=== PATIENT | female | born 1975 | race Hispanic/Latino ===

== ENCOUNTER 2020-12-02 06:49 | Observation (INO) | payer OTHER ==
[~2020-12-02] VITALS: Ht 162.6 cm; Wt 65.0 kg
[2020-12-02] MEDS ORDERED: LISINOPRIL20 MG PO (07:17)
[2020-12-02] MEDS ORDERED: LEVOTHYROXINE50 MC1 PO (10:50)
--- NOTE | 2020-12-02 11:40 | NUR ---
PATIENT TAKEN TO SURGERY AT THIS TIME.
--- NOTE | 2020-12-02 12:55 | NUR ---
ASSESSING pt was checked in after being brought back to the floor, by charge nurse Chitra LEIJA. this RN to bedside to check in on pt. pt wakes to voice and touch, very groggy at this time. pt able to have sips of water and ice chips at this time, no nausea. pt denies needs at this time. table and call light in reach, family at bedside.
--- NOTE | 2020-12-02 13:25 | NUR ---
POST-OP VITALS pts VSS. pt wakes to voice and touch. pt still groggy post-op. pt able to take sips of water at this time, denies nausea. pt sitting up, semi-fowlers in bed, breathing even and unlabored, table and call light in reach.
--- NOTE | 2020-12-02 13:54 | NUR ---
12/02/20 1354 CHRISTIANNE LEHMAN 1336 PATIENT INTO PACU. AIRWAY IN PLACE. PATIENT WILL OPEN EYES TO VERBAL STIMULI. APPEARS DROWSY. DRESSING C/D/I. VSS. DOES NOT APPEAR PAIN OR NAUSEA 1346 SARAH TATE PULLED ORAL AIRWAY. BP STABLE. PATIENT NEEDING ENCOURAGEMENT TO BREATH ABD TAKE DEEP BREATHS. 1353 PATIENT APPEARS MORE AWAKE MASK ON 10 L, PATIENT NEEDS ENCOURAGEMENT TO TAKE DEEP BREATHS.
--- NOTE | 2020-12-02 14:45 | NUR ---
PT ARRIVED AT 1425. PT SINCE ARRIVAL HAS BEEN VERY DROWSY AND IS NOT REALLY TALKING JUST YET. V/S WDL EXCEPT BEING ON 2L O2 NC. LAP SITES X4 WITH A SCANT AMOUNT OF SEROUS DRAINGE PRESEN, STERI STRIPS IN PLACE. WILL WAIT FOR PT TO WAKE UP SOME MORE FOR A MORE THROUGH ASSESSMENT.
--- NOTE | 2020-12-02 16:10 | NUR ---
CCU CALLED ABOUT T-WAVE INVERSION A COUPLE OF MINUTES AGO. CALLED ONI AND RECEIVED ORDERS FOR A EKG AND A TROPONIN. ALL IS DONE. RESULTS TO FOLLOW.
--- NOTE | 2020-12-02 17:15 | NUR ---
JOSE CARLOS FROM LAB JUST CALLED WITH A CRITICAL TROPONIN OF 0.445. MD BUNN AWARE.
--- NOTE | 2020-12-02 17:49 | EKG ---
[facility] [address] [facility] [place], [place] [address] Signed Normal sinus rhythm Left axis deviation ST \T\ T wave abnormality, consider inferolateral ischemia Prolonged QT Abnormal ECG No previous ECGs available Confirmed by GRACE RODRIGUEZ DO ([id number]) on 12/02/2020 5:49:24 PM Electronically Signed By: GRACE RODRIGUEZ DO 12/02/20 1749 PATIENT NAME: ZECHARIAH DE JESUS Electrocardiogram DATE OF : 71 PHYSICIAN: GRACE RODRIGUEZ DO REPORT #: [id number] REPORT IS CONFIDENTIAL AND NOT TO BE RELEASED WITHOUT AUTHORIZATION
--- NOTE | 2020-12-02 20:30 | NUR ---
PATIENT DENIES PAIN AT THIS TIME PER PATIENT'S DAUGHTER TRANSLATING. INSTRUCTED DAUGHTER TO HAVE THE PATIENT TELL HER IF PATIENT STARTS HAVING ANY PAIN SO WE CAN MEDICATE. PATIENT'S DAUGHTER AND LEAVING FOR A FEW MINUTES. PATIENT'S CALL LIGHT IS IN REACH.
--- NOTE | 2020-12-02 22:14 | NUR ---
PT IS ON [address] BUNN'S ORDERS. PT DENIES NEEDS AT THIS TIME. CALL LIGHT IS CLOSE.
--- NOTE | 2020-12-02 22:50 | NUR ---
ENTERED PT'S ROOM TO ASSIST HER TO USE BSC. UPON REMOVING THE BLANKETS TO GET PT UP HER GOWN WAS SATURATED WITH BLOOD OVER THE MIDDLE OF HER ABDOMEN. GATHERED SUPPLIES TO PLACE OVER BLEEDING AND SAW PRIMARY RN COLLIN. HE ENTERED THE ROOM AND PUT GAUZE AND TAPE OVER THE MID UPPER ABD LAP SITE. VS TAKEN AND WNL. PT DENIES CHEST PAIN, SOB.
--- NOTE | 2020-12-02 23:00 | NUR ---
CALLED FOR BLEEDING AT UPPER MIDLINE EPIGASTRIC LAB SITE. DR. BNUN VERBLIZED TO HOLD PRESSURE ON THE SITE FOR 10-15 MINUTES AND IF BLEEDING DOES NOT RESOLVE TO GIVE HIM A CALL BACK ON HIS HOME PHONE. THIS RN VERBALIZED UNDERSTANDING.
--- NOTE | 2020-12-02 23:15 | NUR ---
HELD PRESSURE TO PT'S ABD WHILE COLLIN LEIJA CALLED DR BUNN. THEN CONTINUED TO HOLD PRESSURE FOR 15MIN TOTAL. BLOOD ON GAUZE HAS NOT INCREASED AT THIS TIME. ABD PAD PLACED OVER GAUZE AND TAPED. PT DENIES CHEST PAIN AND SOB. PT REPORTS SOME PAIN WHERE PRESSURE WAS HELD. PT DENIES NEEDS AT THIS TIME. CALL LIGHT IS CLOSE.
--- NOTE | 2020-12-02 23:55 | NUR ---
PATIENT IS RESTING QUIETLY AND AWAKENS TO VOICE. DENIES PAIN AT THIS TIME. DRESSING TO ABD CHECKED AND AREA'S OF BLOOD OUTLINED WITH MARKER, DRESSING NOT REMOVED. PATIENT'S VS ARE STABLE AND PATIENT DOES REMAIN ON 2L/NC PER .
--- NOTE | 2020-12-03 02:20 | NUR ---
IN TO ASSIST NEEDED WITH LINEN CHANGE, WASHCLOTH USED TO CLEAN PT SIDE, LAB IN TO DRAW, NO FURTHER NEEDS FROM THIS SAP DIRECTOR AT THIS TIME
--- NOTE | 2020-12-03 02:26 | NUR ---
PHONE CALL TO . PATIENT'S UPPER MIDLINE LAPROSCOPIC SITE HAS STARTED BLEEDING AGAIN, 4X4'S SATURATED AND BLOOD HAS POOLED ON HER LEFT SIDE BY HER HIP. CALLED AND ORDERS FOR CBC AND COAG LABS GIVEN. DIERECT PRESSURE TO LAB SITE APPLIED WITH 4X4'S. FAIZAN FROM CCU HAD ALREADY A POTASSIUM FOR LAB AND A NEW EKG WAS DONE.
--- NOTE | 2020-12-03 02:26 | NUR ---
PT QRS INTERVAL CONTINUES TO INCREASE. PT DENIES PAIN OR SHORTNESS OF BREATH, BUT APPEARS PALE AND DIAPHORETIC. MID EPIGASTRIC ABDOMINAL INCISION LEEKING BLOOD THROUGH DRESSING, GOWN AND BEDDING. PRIMARY NURSE, RT AND CHARGE NURSE AT BEDSIDE. TELEPHONE ORDERS FROM DR BUNN FOR POTASSIUM AND EKG. WILL CONTINUE COLLABORATE WITH PRIMARY CARE NURSE ON PATIENT STATUS.
--- NOTE | 2020-12-03 03:05 | NUR ---
CAME IN AND PUT SOME STITCHES IN THE UPPER MIDLINE LAP SITE. LAB UNABLE TO GET BLLOD DRAW WITH 3 ATTEMPTS. THIS RN COMPLETED LAB DRAW AND SENT IT DOWN. FOLDED GAUZE TO THE SIZE OF A 2X2 PLACED OVER STITCHED LAP SITE AND CLEAR SURGICAL TAPE APPLIED. PATIENT'S LINEN'S HAVE BEEN CHANGED AND AN ABD BINDER PLACED UNDER PATIENT BEFORE ARRIVED, BUT HE DOES NOT WANT THIS APPLIED AT THIS TIME. PATIENT'S DAUGHTER HAS BEEN TRANSLATING FOR AND STAFF. PATIENT STILL DENIES NEED FOR PAIN MEDICATION. CALL LIGHT IS IN REACH.
--- NOTE | 2020-12-03 03:08 | OR ---
[facility] [place] [facility] [address] [place], [place] [address] Signed DATE OF OPERATION: 12/02/2020 SURGEON: Sarah Bunn MD PREOPERATIVE DIAGNOSIS: Acute calculous cholecystitis. POSTOPERATIVE DIAGNOSIS: Acute calculous cholecystitis. PROCEDURES: 1. Laparoscopic cholecystectomy with intraoperative cholangiogram. 2. Surgeon-directed fluoroscopy. ANESTHESIA: General endotracheal; Sarah Gonzalez CRNA, and local 20 mL of 0.25% Marcaine with epinephrine. INDICATION: This 45-year-old woman, who is from the [facility] and presented to the emergency room, evaluated by Dr. Claudio and found to have acute cholecystitis as manifest by right subcostal tenderness and a gallbladder ultrasound showing thickening of the gallbladder wall and multiple stones. She was evaluated and found to have stones several months ago at the [facility], but inability to provide referral for surgical evaluation as noted by the family and that is why they presented to the hospital in [place]. She has been given fluid resuscitation, IV antibiotics, parental pain medication and is now to undergo cholecystectomy, preferably by laparoscopic approach. The risks of bleeding, infection, bile duct injury, and need for other indicated procedures were reviewed in detail. She understands and wished to proceed. FINDINGS: The gallbladder was markedly distended and inflamed, but not bile-stained. It had a pink edematous appearance. The liver was normal. Cholecystectomy was performed without problem showing multiple gallstones and severe acute inflammation. Cholangiogram was normal. There were no complications. DESCRIPTION OF PROCEDURE: The patient was brought to the operating room, given a general endotracheal anesthetic. During the course of intubation, her upper central false teeth, which were attached to two posts were dislodged apparently and were preserved and will be passed to the patient Electronically Signed By: SARAH BUNN MD 12/03/20 0308 PATIENT NAME: ZECHARIAH DE JESUS OPERATIVE REPORT DATE OF : 71 REPORT #: [id number] PHYSICIAN: SARAH BUNN MD PCP: OTHER PCP REPORT IS CONFIDENTIAL AND NOT TO BE RELEASED WITHOUT AUTHORIZATION [facility] [place] [facility] [address] [place], [place] [address] Signed postoperatively. There was no injury to the implants itself. It is uncertain if this represented a semi-permanent dental device or one that is removed on a daily basis. After satisfactory general endotracheal anesthesia, the abdomen was prepared with a chlorhexidine solution and draped sterilely. An infraumbilical incision was made and using an open Zehra cannula technique pneumoperitoneum achieved to a level of 14 mmHg of carbon dioxide gas. Intraabdominal inspection showed no ascites or carcinomatosis. The gallbladder was markedly inflamed and pink in appearance. Three additional trocars were placed in usual configuration in the subxiphoid, right midclavicular, and right anterior axillary line. The gallbladder was elevated cephalad and retracted laterally and using blunt electrocautery dissection the triangle of Calot was dissected free. Marked edema and fluid in the soft tissues were noted. Ultimately, the cystic duct was well identified and was able to be isolated from a nearby cystic arterial branch. The cystic artery branch was doubly-clipped and later divided. A clip was applied across gallbladder cystic duct junction and a transverse choledochotomy made in the cystic duct. Egress of clear bile was noted from the cystic duct. Using an [employer] type cholangiocatheter system, intraoperative cholangiography was undertaken showing free flow of contrast in the biliary tree with prompt emptying into the duodenum. There were no biliary anomalies, filling defect or other abnormality. The catheter was removed and the cystic duct was triply clipped and divided. The gallbladder dissected free in a retrograde fashion using electrocautery. The gallbladder is placed in an endobag and extracted through the infraumbilical port site without problem, opened on the back table and found to have multiple yellow 1.5 cm yellow rounded gallstones. There was no sign of neoplasm. Irrigation was undertaken in the subhepatic space. Hemostasis was assured with electrocautery. CO2-directed spray Tisseel was applied to the resected gallbladder surface. There was good hemostasis. Excess irrigation fluid was suctioned free and the trocars were removed under direct visualization showing no sign of bleeding. The infraumbilical fascial incision reapproximated with interrupted 2-0 Vicryl suture, followed by a running 0 PDS suture. The skin was closed with interrupted 3-0 Vicryl after applying 20 mL of 0.25% Marcaine with epinephrine. Steri-Strips were applied. The patient was ultimately extubated and transferred to the recovery room in good condition, having suffered no complications. Sponge, needle, and instruments counts were reported as correct x3. Sarah Bunn MD JM/MODL Electronically Signed By: SARAH BUNN MD 12/03/20 0308 PATIENT NAME: ZECHARIAH DE JESUS OPERATIVE REPORT DATE OF : 71 REPORT #: [id number] PHYSICIAN: SARAH BUNN MD PCP: OTHER PCP REPORT IS CONFIDENTIAL AND NOT TO BE RELEASED WITHOUT AUTHORIZATION [facility] [place] [facility] [address] [place] [address] Signed /[id number] cc: Manan Claudio MD [facility] Copies: MANAN CLAUDIO MD ~ Electronically Signed By: SARAH BUNN MD 12/03/20 0308 PATIENT NAME: ANJALIZECHARIAH CROWE OPERATIVE REPORT DATE OF : 71 REPORT #: [id number] PHYSICIAN: SARAH BUNN MD PCP: OTHER PCP REPORT IS CONFIDENTIAL AND NOT TO BE RELEASED WITHOUT AUTHORIZATION
--- NOTE | 2020-12-03 03:08 | HP ---
[facility] [address] [place], [place] [address] Signed ADMISSION DATE: 12/02/2020 REASON FOR ADMISSION: Acute calculous cholecystitis. HISTORY OF PRESENT ILLNESS: This 45-year-old woman speaks little anguish. She is accompanied by her as well as her daughter, who was completely fluent in both Kenyan and Spanish. The patient presented with severe right upper abdominal and right posterior thoracic pain proximally, which began approximately 3 in the morning. She has had nausea, but no vomiting. She last ate yesterday. Evaluation in the emergency room included a gallbladder ultrasound, which confirms thickening of the gallbladder wall, pericholecystic fluid and some gallstones. The patient tells me through her daughter that she gets her medical care at the [facility] in the [place] [facility] the [facility], they live in [place]. She had been discovered as having gallstones, which were symptomatic previously and in May, apparently some referral for surgical evaluation was initiated, but never completed in someway. They felt that they were not getting a referral, they had expected and that is why presented to the emergency room in [place]. PAST MEDICAL HISTORY: Small pituitary tumor from what I gather. She has had a in the past and is considered likely to have fibroids of the uterus, so all that is uncertain. The patient does not smoke or drink alcohol. She is noted to have undergone a COVID vaccination. A COVID test is currently pending. REVIEW OF SYSTEMS: She denies any shortness of breath or chest pain. She has no headache. She has no vision changes. She does have pain in the abdomen mostly in the right subcostal area. PHYSICAL EXAMINATION: GENERAL: A pleasant and reserved woman accompanied by her and daughter. CHEST: Shows normal respiratory excursion without tachypnea. Pulses regular. ABDOMEN: Scaphoid and nondistended. There is extreme tenderness in the right upper abdomen. No palpable masses noted. EXTREMITIES: Show no clubbing, cyanosis, or edema. LABORATORY STUDIES: Show white count of only 7.7, hematocrit 38.3, and platelets 239,000. Electrolytes Electronically Signed By: SARAH BUNN MD 12/03/20 0308 PATIENT NAME: ZECHARIAH DE JESUS HISTORY AND PHYSICAL DATE OF : 71 REPORT #: [id number] PHYSICIAN: SARAH BUNN MD PCP: OTHER PCP REPORT IS CONFIDENTIAL AND NOT TO BE RELEASED WITHOUT AUTHORIZATION [facility] [address] [place], [place] [address] Signed abnormal for potassium of 2.6, creatinine of 0.59, alkaline phosphatase 85, bilirubin 0.5, AST 19, ALT 10, and beta-hCG is negative. Urinalysis is normal. Ultrasound does show gallstones as expected. I have reviewed it myself and concur. ASSESSMENT: The patient has acute cholecystitis related to gallstones. The gallstones were discovered what sounds like months ago and persistent failure of a referral prompted the patient to seek care in this hospital. She has been initiated on Ancef antibiotic, Pepcid intravenously administered and I have recommended cholecystectomy today. The patient was slightly hypertensive at my evaluation with a blood pressure of 134/110. She tells me via her daughter that she has been off her antihypertensive medication for two weeks. She is uncertain what medication that was. Additionally, her potassium is slightly low at 2.9. We will have initiated IV fluids, antibiotics, and so forth and will re-evaluate her blood pressure. Acute control may be appropriate depending on its level. I discussed with the patient and her and the daughter, recommendation of treatment to include cholecystectomy preferred by laparoscopic approach. The risks of bleeding, infection, bile duct injury, need for open procedure and other unforeseen complications were all reviewed in detail. She understands and they wish to proceed. MD SABINA Martin/MODL /[id number] cc: [facility] Manan Claudio MD Copies: MANAN CLAUDIO MD Electronically Signed By: SARAH BUNN MD 12/03/20 0308 PATIENT NAME: ZECHARIAH DE JESUS HISTORY AND PHYSICAL DATE OF : 71 REPORT #: [id number] PHYSICIAN: SARAH BUNN MD PCP: OTHER PCP REPORT IS CONFIDENTIAL AND NOT TO BE RELEASED WITHOUT AUTHORIZATION [facility] [address] [place] [address] [place] [address] Signed ~ Electronically Signed By: SARAH BUNN MD 12/03/20 0308 PATIENT NAME: ZECHARIAH DE JESUS HISTORY AND PHYSICAL DATE OF : 71 REPORT #: [id number] PHYSICIAN: SARAH BUNN MD PCP: OTHER PCP REPORT IS CONFIDENTIAL AND NOT TO BE RELEASED WITHOUT AUTHORIZATION
--- NOTE | 2020-12-03 03:50 | NUR ---
SCDS BEEPING, FOUND PTs ASSIST PT TO BED FROM COMMODE, REMINDED IMPORTANCE OF CALLING, RN INFORMED, SDCS BACK IN PLACE
--- NOTE | 2020-12-03 04:14 | NUR ---
IN ROOM TO ADMINISTER MEDICATIONS. PT DENIES NEED FOR PAIN MEDS AT THIS TIME. SHE STATES HER BACK HURTS A LITTLE. PT NOW EATING JELLO AND DENIES FURTHER NEEDS. CALL LIGHT IS CLOSE.
--- NOTE | 2020-12-03 04:27 | NUR ---
PATIENT HAS HAD NO MORE BLEEDING AT SURGICAL SITE AND PATIENT STILL DENIES THE NEED FOR PAIN MEDICATION. PATIENT STILL REMAINS PALE, BUT LAB WORK CAME BACK GOOD. PATIENT HAS NO OTHER NEEDS AT THIS TIME AND HAS GOTTEN UP TO THE BEDSIDE COMMODE WITH 1PA. AND BACK TO BED. CALL LIGHT IS IN REACH.
--- NOTE | 2020-12-03 06:14 | NUR ---
PATIENT HAS DENIED THE NEED FOR AND DECLINED ANY PAIN MEDICATION ALL NIGHT. VS HAVE REMAINED STABLE THROUGHOUT THE SHIFT. JUST BEFORE 2300 PATIENT WAS NOTED TO HAVE BLEEDING COMING FROM HER MIDLINE EPIGASTRIC LAP SITE. DIRECT PRESSURE WAS APPLIED AND WAS INFORMED AND PRESSURE WAS TO BE HELD AND IF NOT CONTROLLED TO CALL . BLEEDING APPEARED TO HAVE SUBSIDED BUT 2X2'S LEFT IN PLACE WITH ABD WITH WERE PLACED LIGHTLY OVER TOP TO BE ABLE TO REASSESS. 2355 DRESSING CHECKED AND SHOWDOWING OUTLINED ON DRESSING AND DID NOT APPEAR TO BE BLEEDING, BUT OLD DRESSING LEFT OVER THE SITE. SHORTLY AFTER 2AM FAIZAN, RN FROM CCU CAME TO CHECK ON PATIENT DUE TO QT ISSUES ON PATIENT'S TELE FEED AND DRESSING HAD STARTED BLEEDING AGAIN AND HAD SATURATED AND SOME BLOOD HAD POOLED AROUND THE PATIENT'S LEFT HIP. CCU ALREADY WANTED TO DRAW A POTASSIUM WHICH THEY DID AND GET A NEW EKG WHICH WAS DONE. DIRECT PRESSURE WAS AGAIN HELD AND DR. BUNN WAS AGAIN CONTACTED BY THIS RN AND ORDERS GIVEN TO DRAW CBC AND BLEEDING TIME LABS. PATIENT'S LINENS WERE CHANGED WHILE DIRECT PRESSURE WAS HELD AND ARRIVED JUST BEFORE 3AM TO PUT SUTURES IN THE LAP SITE WHICH STOPPED THE BLEEDING FOR GOOD TO THIS TIME AND A SMALL GAUZE DRESSING IS C/D/I OVER THE SITE WITH MEDICAL TAPE. PATIENT'S VS REMAIN STABLE AND PATIENT IS RESTING QUIETLY WITH AND DAUGHTER TO TRANSLATE IN THE ROOM.
--- NOTE | 2020-12-03 06:34 | NUR ---
IN TO GET VITALS, PT DECLINED REFILLED WATER, NO FURTHER NEEDS AT THIS TIME
--- NOTE | 2020-12-03 07:20 | NUR ---
RN IN TO CHECK ON PT DUE TO AN EPISODE OF NON-SUSTAINED V-TACH. PT LAYING IN BED SLEEPING BUT AWOKE EASILY. PT NOTED TO HAVE PALLOR. PT ALERT AND ORIENTED X3. PT REPORTS NO LIGHT HEADEDNESS, DIZZYNESS, AND DENIES CHEST PAIN. PT STATES SHE HAS SOME MILD LOWER BACK PAIN AT THIS TIME BUT STATES IT MAY BE FROM LAYING DOWN. PRIMARY RN NOTIFIED AT THIS TIME OF THE TELEMETRY CHANGES AND PT PRESENTATION.
--- NOTE | 2020-12-03 07:45 | NUR ---
DR. RODRIGUEZ CALLED AT THIS TIME AND INFORMED ON PT'S NON-SUSTAINED VTACH AND PT HAVING TRIPLETS ON TELEMETRY.
--- NOTE | 2020-12-03 08:09 | NUR ---
REPORT RECEIVED. PT IN BED WITH 2L NC IN PLACE. FAMILY AT BEDSIDE. LR AT 85ML/HR INFUSING. INSICIONS ASSESS AND W/O NEW BLEEDING. CALL LIGHT IN REACH. DR RODRIGUEZ CALLED TO FLOOR AND WAS NOTIFIED CCU WOULD BE CALLING HIM TO DISCUSS EKG RESULTS. TELEPHONE ORDER RECEIVED FOR STAT TROP. ORDER PLACED AND LAB DRAW DONE BY THIS RN.
--- NOTE | 2020-12-03 08:25 | NUR ---
VITAL SIGNS TAKEN AND DOCUMENTED. ALL WNL.
--- NOTE | 2020-12-03 08:44 | NUR ---
PT AWAKE IN BED. DAUGHTER AND IN ROOM. WHITE BOARD UPDATED. RN SHASHI WITH PT. CALL LIGHT WITHIN REACH.
--- NOTE | 2020-12-03 08:45 | NUR ---
IN ROOM TO ADMISTER NEW MEDICATION ORDERS. DR RODRIGUEZ TO BEDSIDE TO ASSESS PT. ORDERS TO TRANSFER TO CCU. CCU NURSES ALSO AT BEDSIDE. PT TRANSFER TO ROOM 128.
--- NOTE | 2020-12-03 09:12 | NUR ---
PT TRANSFERRED FROM [facility] TO THE CCU ROOM AT 0855. PT BROUGHT DOWN IN HER BED ALONG WITH HER FAMILY. PT ALERT AND ORIENTED AND HAS NO COMPLAINTS OF CHEST PAIN OR BACK PAIN WHEN ASKED. PT STATED THAT PREVIOUS BACKPAIN HAS SUBSIDED AND WAS LIKELY FROM LAYING IN AN UNCOMFORTABLE POSITION. ORDERED IV MEDICATION ADMINISTERED AND ORDERED IVF INFUSING ORDERED AT THIS TIME. PT VITALS TAKEN AT THIS TIME AND NEW 18G IV PLACED BY LISS SINGH IN THE R AC. PT TOLERATED INSERTION OF IV WHICH IS NOW SALINE LOCKED. PT REPORTS NO FURTHER NEEDS AT THIS TIME, WATER PROVIDED FOR PT. FAMILY IN ROOM WITH PT AT THIS TIME. PT REPORTS NO FURTHER NEEDS AT THIS TIME, WILL CONTINUE PLAN OF CARE. CALL LIGHT IN REACH, BED IN LOWEST POSITION.
--- NOTE | 2020-12-03 09:35 | NUR ---
PT ASSESSED AT THIS TIME. PT ALERT AND ORIENTED LAYING IN BED AND REPORTS NO PAIN, LIGHTHEADEDNESS, OR SOB. PT ON ROOM AIR AT THIS TIME AND SPO2 IS 96-97%. PT ASSESSED AT THIS TIME, LUNGS ARE CLEAR, BOWEL TONES ACTIVE, IRREGULAR RYTHM AUSCULTATED. RADIAL AND PEDAL PULSES STRONG, PT REPORTS NO NUMBNESS OR TINGLING. SCD'S PLACED BACK ON AT THIS TIME. SURGICAL SITES ASSESSED AND ARE C/D/I WITH NO NEW SIGNS OF BLEEDING. PT REPORTS NO PAIN TO THESE SITES. PT REPORTS NO FURTHER NEEDS AT THIS TIME WHEN ASKED, WILL CONTINUE PLAN OF CARE. ORDERED IVF INFUSING, CALL LIGHT IN REACH, BED IN LOWEST POSITION.
--- NOTE | 2020-12-03 10:00 | NUR ---
THIS RN IN TO ASSIST PT SHE STATED SHE NEEDED TO VOID. PT ASSISTED UP TO A SITTING POSITION AND THAN HELPED UP OUT OF BED. PT ABLE TO WALK OVER TO BATHROOM WITH MINOR ASSISTANCE. GAIT IS SLOW AND WEAK. PT ABLE TO SIT DOWN ON BSC IN BATHROOM PER HER PREFERENCE. PT THEN HELPED BACK UP AND ABLE TO WALK BACK SLOWLY TO THE BED. PT REPORTS NO LIGHTHEADEDNESS OR DIZZYNESS FROM STANDING WHEN ASKED. PT NOW LAYING BACK IN BED CLEAN LINENS AND GOWN PROVIDED DURING THIS TIME. PT REPORTS NO FURTHER NEEDS AND IS NOW LAYING BACK IN BED. IVF INFUSING, BED IN LOWEST POSITION, CALL LIGHT IN REACH. WILL CONTINUE PLAN OF CARE.
--- NOTE | 2020-12-03 10:41 | NUR ---
THIS RN IN TO ADMINISTER ORDERED MEDICATIONS. PT LAYING IN BED AWAKE AND ALERT, IV MAGNESIUM COMPLETE, LR NOW INFUSING. PT ON 1L O2 NC, SPO2 AT 100%. ORDERED MEDICATIONS ADMINISTERED AT THIS TIME AFTER TAKING VITALS. PT REPORTS NO CHEST PAIN OR SHORTNESS OF BREATH. PT DENIES HAVING ANY ABDOMINAL PAIN FROM THE SURGERY WELL. PT REPORTS NO FURTHER NEEDS AT THIS TIME, WILL CONTINUE PLAN OF CARE. CALL LIGHT IN REACH, BED IN LOWEST POSITION, IVF INFUSING, SCD'S IN PLACE, 1L O2 NC ON PT SPO2 AT 100%.
--- NOTE | 2020-12-03 11:20 | NUR ---
DR. BUNN IN TO ASSESS PT AND UPDATE ON PLAN OF CARE. THIS RN IN TO HELP INTERPRET. QUESTIONS ANSWERED AT THIS TIME, SURGICAL SITE C/D/I. PT REPORTS NO FURTHER NEEDS OR QUESTIONS AT THIS TIME. WILL CONTINUE PLAN OF CARE.
[2020-12-03] MEDS ORDERED: IBUPROFEN600 MG PO (11:51)
[2020-12-03] MEDS ORDERED: HYDROCODON-ACE1 EA10 PO (11:52)
[2020-12-03] MEDS ORDERED: LISINOPRIL20 MG PO (11:52)
[2020-12-03] MEDS ORDERED: METOPROLOL TART25 MG PO (11:52)
--- NOTE | 2020-12-03 12:32 | NUR ---
PT LAYING IN BED AT THIS TIME AND IS ALERT AND ORIENTED. ASSESSMENT COMPLETED AT THIS TIME AND VITALS TAKEN. PT REPORTS NO PAIN, LIGHTHEADEDNESS, DIZZYNESS, OR SHORTNESS OF BREATH. SCHEDULED IV ABX STARTED DURING THIS PERIOD AND COMPLETED. PT DID NOT EAT MUCH OF HER LUNCH STATING SHE IS HESITANT SHE IS IS USED TO FEELING PAIN AFTER EATING. PT INFORMED THAT SHE IS SAFE TO EAT AND THE PAIN SHOULD NO LONGER OCCUR DUE TO HER SURGERY. FOOD LEFT AT BEDSIDE TABLE FOR PT. PT REPORTS NO FURTHER NEEDS AT THIS TIME, IVF INFUSING ORDERED, SCD'S IN PLACE, BED IN LOWEST POSITION, CALL LIGHT WITHIN REACH. WILL CONTINUE PLAN OF CARE.
--- NOTE | 2020-12-03 14:20 | NUR ---
THIS RN IN TO DRAW PT LABS. PT LAYING IN BED ALERT AND ORIENTED USING HER PHONE. PT REPORTS NO PAIN, SHORTNESS OF BREATH, LIGHTHEADEDNESS, OR DIZZYNESS AT THIS TIME. PT DENIES CHEST PAIN OR BACK PAIN. LABS DRAWN AT THIS TIME OFF OF RIGHT AC IV AND SENT TO LAB. PT REPORTS NO FURTHER NEEDS AND HAS BEEN TAKEN OFF THE 1L O2 NC. PT MAINTAINING SPO2 AT 100% ON ROOM AIR. IVF INFUSING ORDERED, CALL LIGHT IN REACH, WILL CONTINUE PLAN OF CARE.
--- NOTE | 2020-12-03 14:45 | EKG ---
[facility] [address] [facility] [place] [address] Signed Normal sinus rhythm Left axis deviation Marked T wave abnormality, consider anterolateral ischemia Prolonged QT Abnormal ECG When compared with ECG of 02-DEC-2020 16:03, T wave inversion more evident in Anterior leads QT has lengthened Confirmed by GRACE RODRIGUEZ DO ([id number]) on 12/03/2020 2:45:19 PM Electronically Signed By: GRACE RODRIGUEZ DO 12/03/20 1445 PATIENT NAME: ANJALI PENAZECHARIAH Electrocardiogram DATE OF : 71 PHYSICIAN: GRACE RODRIGUEZ DO REPORT #: [id number] REPORT IS CONFIDENTIAL AND NOT TO BE RELEASED WITHOUT AUTHORIZATION
--- NOTE | 2020-12-03 14:48 | EKG ---
[facility] [address] [facility] [place] [address] Signed Sinus rhythm with frequent and consecutive premature ventricular complexes Left axis deviation ST \T\ Marked T wave abnormality, consider inferior ischemia ST \T\ Marked T wave abnormality, consider anterolateral ischemia Prolonged QT Abnormal ECG When compared with ECG of 03-DEC-2020 02:07, (Unconfirmed) T wave inversion more evident in Lateral leads QT has lengthened Confirmed by GRACE RODRIGUEZ DO ([id number]) on 12/03/2020 2:48:46 PM Electronically Signed By: GRACE RODRIGUEZ DO 12/03/20 1448 PATIENT NAME: ZECHARIAH DE JESUS Electrocardiogram DATE OF : 71 PHYSICIAN: GRACE RODRIGUEZ DO REPORT #: [id number] REPORT IS CONFIDENTIAL AND NOT TO BE RELEASED WITHOUT AUTHORIZATION
--- NOTE | 2020-12-03 14:49 | EKG ---
[facility] [address] [facility] [place] [address] Signed Sinus rhythm with frequent premature ventricular complexes Left anterior fascicular block Marked T wave abnormality, consider anterolateral ischemia Prolonged QT Abnormal ECG When compared with ECG of 03-DEC-2020 08:31, (Unconfirmed) QT has shortened Confirmed by GRACE RODRIGUEZ DO ([id number]) on 12/03/2020 2:49:41 PM Electronically Signed By: GRACE RODRIGUEZ DO 12/03/20 1449 PATIENT NAME: ZECHARIAH DE JESUS Electrocardiogram DATE OF : 71 PHYSICIAN: GRACE RODRIGUEZ DO REPORT #: [id number] REPORT IS CONFIDENTIAL AND NOT TO BE RELEASED WITHOUT AUTHORIZATION
--- NOTE | 2020-12-03 15:33 | NUR ---
THIS RN IN TO HANG A NEW BAG OF IV LR. PT ALERT AND ORIENTED LAYING IN BED USING HER PHONE. PT DENIES HAVING ANY PAIN IN HER SURGICAL SITES AND DENIES CHEST PAIN OR BACK PAIN. PT DENIES SHORTNESS OF BREATH, LIGHTHEADEDNESS, OR DIZZYNESS WELL. PT ON ROOM AIR AT THIS TIME SPO2 99%. NEW BAG OF LR NOW INFUSING. PT REPORTS NO FURTHER NEEDS WHEN ASKED, WILL CONTINUE PLAN OF CARE. CALL LIGHT IN REACH.
--- NOTE | 2020-12-03 16:10 | NUR ---
IN TO ASSESS PT AT THIS TIME. PT ALERT AND ORIENTED LAYING IN BED. VITALS TAKEN AT THIS TIME AND ASSESSMENT COMPLETE. LAPROSCOPIC SITES C/D/I WITH NO NEW SIGNS OF BLEEDING. LUNGS CLEAR, BOWEL TONES ACTIVE, PULSES STRONG. PT DENIES PAIN WHEN ASKED. PT ALS DENIES SHORTNESS OF BREATH OR FEELINGS OF LIGHTHEADEDNESS OR DIZZYNESS AND DENIES CHEST OR BACK PAIN. PT REPORTS NO FURTHER NEEDS AT THIS TIME WHEN ASKED. IVF INFUSING ORDERED, SCDS IN PLACE, CALL LIGHT IN REACH, WILL CONTINUE PLAN OF CARE.
--- NOTE | 2020-12-03 17:05 | NUR ---
RN IN TO BRING PT HER DINNER AT THIS TIME. PT ALERT AND ORIENTED LAYING IN BED TALKING TO HER SISTER AT THE BEDSIDE. PT REPORTS NO FURTHER NEEDS WHEN ASKED AND IS NOW EATING. WILL CONTINUE PLAN OF CARE. CALL LIGHT IN REACH, BED IN LOWEST POSITION, IVF INFUSING ORDERED.
--- NOTE | 2020-12-03 17:45 | NUR ---
RN IN TO CHECK ON PT. PT LAYING IN BED AWAKE AND ALERT AT THIS TIME. PT ASKED IF SHE NEEDED TO VOID TO WHICH SHE STATED YES. PT ASSISTED UP OUT OF BED. PT ABLE TO WALK TO BATHROOM WITH NO ASSISTANCE, GAIT WAS SLOW BUT PT STATED SHE FELT STRONGER COMPARED TO THE MORNING. PT DENIED LIGHTHEADEDNESS OR DIZZYNESS WHILE GOING TO AND FROM BATHROOM. PT ASSISTED BACK INTO BED. WHILE RESITUATING THE PT AND RECONNECTING HER IVF THE PT WAS NOTED TO HAVE 15 BEATS OF VTACH. DURING THIS TIME THE PT INFORMED ME THAT SHE WAS FEELING DIZZY AND WARM. PT DENIED HAVING ANY CHEST PAIN AFTER THE EVENT. VITALS TAKEN AFTERWARDS, HR 77, SPO2 98% ON ROOM AIR, RR 16, BP WAS 123/71 (87). PT REPORTS THAT THE FEELINGS OF WARMTH AND DIZZYNESS SUBSIDED AFTER A FEW SECONDS. PT NOW LAYING BACK IN BED AWAKE AND ALERT, IVF INFUSING ORDERED, NOW IN ROOM AT BEDSIDE. PT REPORTS NO FURTHER NEEDS WHEN ASKED. CALL LIGHT IN REACH. LISS SINGH UPDATING DR. RODRIGUEZ ON THE EVENT AT THIS TIME, WILL CONTINUE PLAN OF CARE
--- NOTE | 2020-12-03 18:30 | NUR ---
DR. RODRIGUEZ IN ROOM AT THIS TIME TO UPDATE PT. ON PLAN OF CARE AND PLANS TO TRANSFER TO A HIGHER ACUITY FACILITY. THIS RN IN TO TRANSLATE FOR PT AND DR. RODRIGUEZ. PT AND FAMILY UNDERSTANDING OF SITUATION AND ARE WILLING TO TRANSFER TO ANOTHER FACILITY. PT QUESTIONS ANSWERED AT THIS TIME. PT REPORTS NO FURTHER NEEDS AT THIS TIME, WILL CONTINUE PLAN OF CARE.
--- NOTE | 2020-12-03 19:30 | NUR ---
REPORT RECIEVED FROM DAYSHIFT. CARE ASSUMED BY THIS SN AT THIS TIME. PATIENT ALERT AND ORIENTED. PATIENT DENIES SHORTNESS OF BREATH OR CHEST PAIN. HR IN THE 70'S WITH FREQUENT PVC'S AND SHORT RUN OF VTACH. PULSES AND CAP REFILL ARE WNL. SURGICAL SITE IS CLEAN DRY AND INTACT. FAMILY IN WITH PATIENT. CALL LIGHT IN REACH. WILL CONTINUE TO MONITOR.
--- NOTE | 2020-12-03 19:35 | NUR ---
THIS RN IN TO CHECK ON PT. PT ALERT AND ORIENTED LAYING IN BED. CONSENT TO TRANSFER SIGNED. QUESTIONS ANSWERED AT THIS TIME FROM PT AND FAMILY ABOUT TRANFER TO [facility]. PT DENIES ANY CHEST PAIN, SHORTNESS OF BREATH, DIZZYNESS OR LIGHTHEADEDNESS AT THIS TIME. IVF INFUSING ORDERED, SCDS IN PLACE. PT REPORTS NO FURTHER NEEDS AT THIS TIME. CALL LIGHT IN REACH, WILL CONTINUE PLAN OF CARE. REPORT GIVEN TO [facility] RN'S.
--- NOTE | 2020-12-03 20:31 | NUR ---
IN TO ADMINISTER SCHEDULED MEDICATION. PT HAD RUN OF SYMPTOMIATIC VTACH. PATIENT REPORTED CHEST PAIN AND THE FEELING OF BEING HOT. AFTER RUN F VTACH SUBSIDED PATIENT REPORTED NO CHEST PAIN OR SHORTNESS OF BREATH. PATIENT ALERT AND ORIENTED, DAUGHTER AT BEDSIDE. PATIENT EDUCATION ON NOTIFYONG STAFF WITH ANY SYMPTOMS. CALL LIGHT IN PLACE. WILL CONTINUE TO MONITOR.
--- NOTE | 2020-12-03 20:40 | NUR ---
PT HAVING RUNS OF VATCH LASTING 4-5 SECONDS. INCREASED FREQUENCY FOR EARLIER, AND PATIENT IS SYMPTOMATIC, COMPLAINING OF CHEST PRESSURE AND DIZZINESS. DR RODRIGUEZ CALLED, ORDERS RECIEVED (SEE EMAR).
--- NOTE | 2020-12-03 20:45 | NUR ---
[facility] ARRIVED TO TRANSFER PATIENT. REPORT GIVEN. PATIENT TRANSFERRED ONTO STRETCHER WITH NO SYMPTOMS. PATIENT BELONGINGS WITH FAMILY. PATIENTS DAUGHTER IS RIDING IN THE AMBULANCE WITH PATIENT. REPORT CALLED TO ELLIE LEIJA AT [facility]. ALL QUESTIONS ANSWERED.
--- NOTE | 2020-12-07 15:04 | PATH ---
[facility] [address] [place] [address] [place] [address] Signed SPECIMEN(S): A GALLBLADDER AND STONES SPECIMEN SOURCE: A. GALLBLADDER AND STONES CLINICAL HISTORY: Cholecystitis, cholelithiasis. FINAL PATHOLOGIC DIAGNOSIS: Gallbladder, cholecystectomy: - Chronic cholecystitis with cholesterolosis. - Cholelithiasis with cystic duct obstruction. NAL:cml:C2NR MICROSCOPIC EXAMINATION: Histologic sections of all submitted blocks are examined by light microscopy. These findings, together with the gross examination, support the pathologic diagnosis. GROSS DESCRIPTION: The specimen, labeled "EC," and designated on the requisition "gallbladder and stones," is received in formalin and consists of Specimen: Previously opened gallbladder. Dimensions: 7.7 x 5.2 x 1.2 cm. Serosa: [place], smooth. Cystic Duct: Obstructed with calculi. Calculi: Multiple yellow, bosselated calculi (3.5 x 1.5 x 1.5 cm in aggregate). Mucosa: [place] and velvety with yellow stippling. Wall thickness: 2.5 cm. Lymph node: No pericystic lymph nodes are grossly identified. Additional: None. Corporate Officer sections are submitted in cassette (A1). AC (under the direct supervision of a pathologist) The Gross Description was prepared using a voice recognition system. The report was reviewed for accuracy; however, sound-alike word errors, addition and/or deletions may occur. If there is any question about this report, please contact Client Services. PERFORMING LABORATORY: The technical component was performed by [facility], [address] [place] [id number] (Transfer Knitter: Yulissa Mi MD; CLIA# [id number]). PATIENT NAME: ZECHARIAH DE JESUS PATHOLOGY DATE OF : 71 REPORT #: [id number] PHYSICIAN: ERNESTINE PATHOLOGY PCP: OTHER PCP REPORT IS CONFIDENTIAL AND NOT TO BE RELEASED WITHOUT AUTHORIZATION [facility] [address] [place], [place] [address] Signed [facility] [address] [address] (CLIA# [id number]). Diagnostician: Lisa Remy MD Pathologist Electronically Signed 12/07/2020 Copies: ~ PATIENT NAME: ZECHARIAH DE JESUS PATHOLOGY DATE OF : 71 REPORT #: [id number] PHYSICIAN: ERNESTINE PATHOLOGY PCP: OTHER PCP REPORT IS CONFIDENTIAL AND NOT TO BE RELEASED WITHOUT AUTHORIZATION
== END 2020-12-03 21:00 | disposition short-term general hospital (02) ==
LOC: ED 06:49 → MS 06:52 → CCU 12-03 08:55
PROVIDERS: ADMIT Surgery; ATTEND Surgery
PROC: BF10YZZ Fluoroscopy of Bile Ducts using Other Contrast (ICD-10-PCS; 2020-12-02)
PROC: 0FT44ZZ Resection of Gallbladder, Percutaneous Endoscopic Approach (ICD-10-PCS; principal; 2020-12-02 12:00)
DX: K80.11 Calculus of gallbladder with chronic cholecystitis with obstruction (principal); I10 Essential (primary) hypertension; E03.9 Hypothyroidism, unspecified; I21.A1 Myocardial infarction type 2; Z20.822 Contact with and (suspected) exposure to COVID-19
CPT/HCPCS: 00790; 74300; 76705; 80048; 80053; 81001; 83690; 83735; 83880; 84132; 84484; 84703; 85025; 85610; 85651; 85730; 88304; 93005; 93010; 96365; 96375; 96376; 99285-25; A9270; G0378; J0690; J1100; J1170; J1885; J2250; J2370; J2405; J2704; J2765; J3010; J3475; J3480; J7030; J7060; J7121; Q9967; U0003